=== PATIENT | female | born 1940 | race Caucasian/White ===

== ENCOUNTER 2025-03-21 13:30 | Outpatient (RCR) | payer MEDICARE, SELFPAY ==
--- NOTE | 2025-01-17 09:51 | OPREHPOC ---
Outpatient Therapy Plan of Care This is a Multidisciplinary Plan of Care that may contain components documented by all disciplines (PT, OT, and ST.) PT Problem 1 PT Problem #1 Knowledge Deficit PT Goal 1 Goal / Goal Update 1. Patient will perform independent HEP 2. Patient will report understanding of urge suppression techniques Target Visit 2 PT Problem 2 PT Problem #2 Pain PT Goal 1 Goal / Goal Update 1. Pain with BM no more than 2/10 2. No pain with pelvic exam Target Visit 5 PT Problem 3 PT Problem #3 Impaired Functional ADLs PT Goal 1 Goal / Goal Update 1. Patient will be able to hold urge to void at least 30 minutes 2. Patient will report no straining with BM 3. Patient will have BM 5 out of 7 days 4. Patient will report no urge incontinence for at least 2 weeks Target Visit 5
--- NOTE | 2025-01-17 09:51 | PTOPEVAL1 ---
Assessment and note entered by Andie Pinon DPT Evaluation Information Assessment Status Evaluation Diagnosis m62.89 ICD-10 Condition Codes (PT) Pelvic and perineal pain R10.2,Urge incontinence N39.41 Subjective Information Pt reports she voids less than 10 times a day and maybe once at night. Reports a lot of urgency and sometimes will get urge incontinence, probably once a week. Volume has increased recently and has had to change clothes, recently started wearing pads because of it. Sometimes is only able to hold urge a few minutes. Denies pain with urination unless she has a bladder infection. BM every other day but does report pain with BM that has been going on for several years. Previous pelvic PT about 1-2 years ago at a different facility but did not help with the pain. I always feel like there is a spiked ball at my rectum, highest pain 8/10 and lowest 2-3/10. Denies n/t. Denies fecal incontinence and reports she struggles with pushing for BM. Has been diagnosed with constipation. Denies history of pelvic pain. Pt has been 3 times with 3 vaginal deliveries, all with episiotomies. Has been recently put on muscle relaxers which helps. Diet: 3 cans of diet coke a day, cup of coffee in the morning, sometimes iced tea. Not typically drinking water by itself except to take medicine. Does eat 3 meals a day, gets fruits and vegetables and all main food groups. Bladder sling 5 years ago. Lumbar fusion L5-S1 in 2014. No other MAINTE[employer] or b/b history. Patient goal: get rid of the pain Return to MD scheduled soon but unsure date. Reported Pain Level Pain Score 3: Self Report Assessment PT Clinical Summary The patient is presenting to skilled therapy with a history of urinary urgency and urge incontinence , as well as pelvic floor pain. She presents with decreased hip and abdominal strength, as well as increased pelvic floor muscle tone and pain with palpation. These impairments are contributing to her pain and difficulty with BM and she will benefit from therapy to reduce impairments and improve function. She will also benefit from education in urge suppression techniques to reduce urgency and incontinence. Plan of Care Interventions Electrical Stimulation,Hot Pack/Cold Pack,Manual Therapy,Neuro Re-education,Patient/Caregiver Education,Therapeutic Activities,Therapeutic Exercise PT Services Indicated Yes Treatment Frequency and 1 time a week for 5 visits Duration These treatments will address the objective and functional deficits as defined above. The patient will be advanced safely and appropriately in order for the patient to progress towards his/her prior level of function. Additional exercises will be introduced and as well as a comprehensive home exercise program upon discharge, if needed, ?to ensure carryover of functional gains achieved in the clinic. This treatment plan has been reviewed and agreement upon by the patient.
--- NOTE | 2025-02-24 09:50 | OPREHPOC ---
Outpatient Therapy Plan of Care This is a Multidisciplinary Plan of Care that may contain components documented by all disciplines (PT, OT, and ST.) PT Problem 1 PT Problem #1 Knowledge Deficit PT Goal 1 Goal / Goal Update 1. Patient will perform independent HEP 2. Patient will report understanding of urge suppression techniques Target Visit 2 Progress Met PT Problem 2 PT Problem #2 Pain PT Goal 1 Goal / Goal Update 1. Pain with BM no more than 2/10 2. No pain with pelvic exam update 02/24/25 1. pain 5/10 highest 2. pain 4/10 Target Visit 6 Progress Partially Met PT Problem 3 PT Problem #3 Impaired Functional ADLs PT Goal 1 Goal / Goal Update 1. Patient will be able to hold urge to void at least 30 minutes 2. Patient will report no straining with BM 3. Patient will have BM 5 out of 7 days 4. Patient will report no urge incontinence for at least 2 weeks update 02/24/25 1. not met 2. not met 3. not met 4. met Target Visit 6 Progress Partially Met
--- NOTE | 2025-02-24 09:50 | PTOPPROG ---
Assessment and note entered by Andie Pinon DPT Evaluation Information Assessment Status Progress Diagnosis m62.89 ICD-10 Condition Codes (PT) Pelvic and perineal pain R10.2,Urge incontinence N39.41 Subjective Information Pt thinks she feels about the same. Pt reports the highest pain in the last week 4-5/10 and lowest 1 -2/10. Pain is increasing with BM, still having BM about every other day. Voiding less than 10 times a day and has not had any urinary incontinence for a couple weeks. Assessment PT Clinical Summary The patient has made good progress in therapy. While she reports feeling about the same, she also reports her highest pain is 4-5/10 (previously 8/ 10). She also reports no urge incontinence for several weeks. She demonstrates improved hip and abdominal strength, decreased pelvic pain on exam and improved ability to relax after contraction. The patient would like to continue HEP for some time and plan to see patient for 1 visit in 3-4 weeks to determine further progress. Plan of Care Interventions Electrical Stimulation,Hot Pack/Cold Pack,Manual Therapy,Neuro Re-education,Patient/Caregiver Education,Therapeutic Activities,Therapeutic Exercise PT Services Indicated Yes Treatment Frequency and 1 visit in 3-4 weeks Duration These treatments will address the objective and functional deficits as defined above. The patient will be advanced safely and appropriately in order for the patient to progress towards his/her prior level of function. Additional exercises will be introduced and as well as a comprehensive home exercise program upon discharge, if needed, ?to ensure carryover of functional gains achieved in the clinic. This treatment plan has been reviewed and agreement upon by the patient.
--- NOTE | 2025-03-21 13:57 | OPREHPOC ---
Outpatient Therapy Plan of Care This is a Multidisciplinary Plan of Care that may contain components documented by all disciplines (PT, OT, and ST.) PT Problem 1 PT Problem #1 Knowledge Deficit PT Goal 1 Goal / Goal Update 1. Patient will perform independent HEP 2. Patient will report understanding of urge suppression techniques Target Visit 2 Progress Met PT Problem 2 PT Problem #2 Pain PT Goal 1 Goal / Goal Update 1. Pain with BM no more than 2/10 2. No pain with pelvic exam update 02/24/25 1. pain 5/10 highest 2. pain 4/10 update 03/21/25 1. same 2. unable to update per request Target Visit 6 Progress Partially Met PT Problem 3 PT Problem #3 Impaired Functional ADLs PT Goal 1 Goal / Goal Update 1. Patient will be able to hold urge to void at least 30 minutes 2. Patient will report no straining with BM 3. Patient will have BM 5 out of 7 days 4. Patient will report no urge incontinence for at least 2 weeks update 02/24/25 1. not met 2. not met 3. not met 4. met update 03/21/25 1. met 2. not met 3. met 4. met Target Visit 6 Progress Partially Met
--- NOTE | 2025-03-21 13:57 | PTOPDC ---
Assessment and note entered by Andie Pinon DPT Evaluation Information Assessment Status Discharge Diagnosis m62.89 ICD-10 Condition Codes (PT) Pelvic and perineal pain R10.2,Urge incontinence N39.41 Subjective Information Highest pain in the last week 510 and lowest 1-. BM 5-6 times in the last week. Voiding less than 10 times a day and still no urinary incontinence. Reported Pain Level Pain Score Mild Pain: Lira Olmos Assessment PT Clinical Summary The patient continues to report she feels about the same, but reports improved frequency of BM in the last week to 5-6 days out of 7. Pain has overall improved and patient also demonstrates improved LE strength. No update of pelvic floor assessment per patient request. Patient would like to discharge to [facility] this visit and she has been educated to continue HEP and follow up with MD and /or PT as needed. Plan of Care PT Services Indicated No
== END 2025-03-22 09:48 | disposition home or self-care (01) ==
LOC: ANHPT 13:30
PROVIDERS: Visit Provider Physician Assistant Medical
DX: M62.89 Other specified disorders of muscle (principal); N39.41 Urge incontinence; N31.9 Neuromuscular dysfunction of bladder, unspecified
CPT/HCPCS: 97110; 97140; 97161; 97530